=== PATIENT | male | born 1935 | race Hispanic/Latino ===

== ENCOUNTER → 2024-05-24 | Outpatient (CLI) | payer MEDICARE, MEDICAID | END | disposition home or self-care (01) | LOC: RAH 13:18 | PROVIDERS: ATTEND Internal Medicine Medical Oncology | DX: Z51.11 Encounter for antineoplastic chemotherapy (principal); I07.1 Rheumatic tricuspid insufficiency | CPT/HCPCS: 93306; 93356 ==